=== PATIENT | female | born 1940 | race Caucasian/White ===

== ENCOUNTER 2016-09-14 02:44 | Emergency (ER) | payer MEDICARE, BC ==
[~2016-09-14] VITALS: Ht 154.9 cm; Wt 79.8 kg
[~2016-09-14 02:44] MED LIST: APIX5TAB PO; COMB0.2S; DEXI30CA2 PO; DILT31TA PO; ESTR.3 PO; FEXO60TA PO; FLUT1SPR9; FLUT50SP EACH NARE; IPRAAER IN; METO50CR PO; MONT10TA2 PO; SIMV40TA PO
[2016-09-14 02:53] VITALS: BP 135/77; PULSE 93; RESP 12; TEMP 98; O2SAT 95
[2016-09-14] MEDS ORDERED: ACETAMINOPHEN 325 MG TAB PO ONE (03:15)
[2016-09-14 03:37] LABS: AUTOMATED NEUTROPHIL # 13.7 TH/MM3 (1.8-7.7); BASOPHIL # 0.6 TH/MM3 (0-0.2); BASOPHIL % 2.8 % (0.0-2.0); EOSINOPHIL % 0.2 % (0.0-4.0); HEMATOCRIT 40.9 % (35.0-46.0); LYMPH % 33.9 % (9.0-44.0); LYMPHOCYTE # 7.8 TH/MM3 (1.0-4.8); MEAN CELL VOLUME 88.6 FL (80.0-100.0); MEAN CORPUSCULAR HGB CONC 32.8 % (32.0-36.0); MONO % 3.7 % (0.0-8.0); NEUT % 59.4 % (16.0-70.0); PLATELET COUNT 215 TH/MM3 (150-450); RED BLOOD COUNT 4.61 MIL/MM3 (4.00-5.30); RED CELL DISTRIBUTION WIDTH 15.6 % (11.6-17.2)
[2016-09-14] MEDS ORDERED: FLUT1SPR5 EACH NARE (03:37)
[2016-09-14] MEDS ORDERED: DILT30TA PO (03:37)
[2016-09-14] MEDS ORDERED: APIX5TAB PO (03:37)
[2016-09-14] MEDS ORDERED: MONT10TA2 PO (03:37)
[2016-09-14] MEDS ORDERED: METO50TA11 PO (03:37)
[2016-09-14] MEDS ORDERED: FEXO15TA PO (03:37)
[2016-09-14] MEDS ORDERED: ALBUAER3 INH (03:37)
[2016-09-14] MEDS ORDERED: DEXI30CA2 PO (03:37)
[2016-09-14] MEDS ORDERED: BRIN1SUS2 EACH EYE (03:37)
[2016-09-14] MEDS ORDERED: FLUT1INH INH (03:37)
[2016-09-14 03:40] LABS: HEMO FLAGS AUTO DIFF
[2016-09-14 03:52] LABS: APTT (PATIENT) 22.7 SEC (24.3-30.1); INTERNATIONAL NORMALIZED RATIO 0.9 RATIO; PROTHROMBIN TIME - PATIENT 9.6 SEC (9.8-11.6)
[2016-09-14 03:54] LABS: CHLORIDE 107 MEQ/L (98-107); POTASSIUM 4.4 MEQ/L (3.5-5.1); SODIUM (NA) 142 MEQ/L (136-145)
--- NOTE | 2016-09-14 03:55 | RADHPO ---
EXAM DATE/TIME: 09/14/2016 03:32 [place] COMPARISON: No previous studies available for comparison. INDICATIONS : Left ankle pain, swelling for 2 hours with no known injury MEDICAL HISTORY : None. SURGICAL HISTORY : None. ENCOUNTER: Initial ACUITY: 1 day PAIN SCORE: 10/10 LOCATION: Left entire ankle FINDINGS: No acute fracture of the left ankle. No subluxation or significant degenerative changes. There is an old ossific fragment distal to the tip of the lateral malleolus. Radiographic appearance of the soft tissues within normal limits. CONCLUSION: No acute abnormality seen of the left ankle. Keyur Gómez MD on September 14, 2016 at 3:52 Board Certified Radiologist. This report was verified electronically.
[2016-09-14 03:57] LABS: ANION GAP 9 MEQ/L (5-15); BICARBONATE 26.4 MEQ/L (21.0-32.0); BLOOD UREA NITROGEN 35 MG/DL (7-18)
[2016-09-14 04:00] LABS: ALT (GPT) 47 U/L (10-53); AST (GOT) 20 U/L (15-37); GLOMERULAR FILTRATION RATE 77 ML/MIN (>89)
[2016-09-14 04:02] LABS: TOTAL BILIRUBIN ADULT 0.4 MG/DL (0.2-1.0)
[2016-09-14 04:03] LABS: ALKALINE PHOSPHATASE 102 U/L (45-117)
--- NOTE | 2016-09-14 04:04 | PD ---
HPI Chief Complaint: Pain: Acute or Chronic Time Seen by Provider: 02:57 Travel History International Travel<30 days: No Contact w/Intl Traveler<30days: No Traveled to known affect area: No History of Present Illness HPI Patient is a 76 year old female who comes in complaining of sudden onset of pain and swelling to her left ankle. She says that the pain woke her up from sleep around 1AM. She does not recall any injuries. She has been having a lot of health problems, specifically having issues with her asthma. She has been started on multiple medications. She does have a history of afib and is on Eliquis. She says she is concerned she may have a blood clot. She denies any chest pain. She is short of breath, but says this is her baseline. PFSH Past Medical History Arthritis: Yes (osteoporosis) Asthma: Yes Atrial Fibrillation: Yes (ablation 2014) Heart Rhythm Problems: Yes (afib) Cardiovascular Problems: Yes High Cholesterol: Yes Cerebrovascular Accident: Yes (tia, stroke with aphasia and dysphasia) Coronary Artery Disease: Yes Diverticulitis: Yes (ibs) GERD: Yes Glaucoma: Yes (severe, bilateral trabeculectomies) Headaches: Yes Hypertension: Yes Medical other: Yes (hairline fractures l ankle, bilat wrist) Musculoskeletal: Yes (r foot pain, numbness to l hand, cramping in feet, chronic back/neck pain) Respiratory: Yes Migraines: Yes Thyroid Disease: Yes (parathyroidectomy) Menopausal: Yes Miscarriage: 6 Past Surgical History Eye Surgery: Yes (bilat cataracts) Hysterectomy: Yes Other Surgery: Yes Social History Alcohol Use: No Tobacco Use: No Allergies-Medications (Allergen,Severity, Reaction): Coded Allergies: Codeine (Verified Allergy, Severe, 09/14/16) Morphine (Verified Allergy, Severe, 09/14/16) Reported Meds & Prescriptions Reported Meds & Active Scripts Active Simvastatin 40 Mg Tab 40 Mg PO HS Reported Proair Hfa 8.5 GM Inh (Albuterol Sulfate) 90 Mcg/Act Aer 2 Puff INH Q4-6H PRN 108 mcg/actuation Breo Ellipta Inh (Fluticasone/Vilanterol) 100-25 Mcg/Act Inh 1 Puff INH DAILY Use daily at the same time. Nan Allergy (Fexofenadine HCl) 180 Mg Tab 180 Mg PO DAILY Flonase Nasal Bush (Fluticasone Nasal Bush) 50 Mcg/Act Bush 50 Mcg EACH NARE BID Singulair (Montelukast Sodium) 10 Mg Tab 10 Mg PO HS Eliquis (Apixaban) 5 Mg Tab 5 Mg PO BID Simbrinza Opth Drops (Brinzolamide-Brimonidine Opth Drops) 1-0.2% Susp 2 Drop EACH EYE DAILY Dexilant (Dexlansoprazole) 30 Mg Isael.bp 1 Cap PO AC BREAKFAST Metoprolol Succinate ER 24 HR (Metoprolol Succinate) 50 Mg Tab 50 Mg PO DAILY Diltiazem (Diltiazem HCl) 30 Mg Tab 30 Mg PO BID Review of Systems Except as stated in HPI: all other systems reviewed are Neg General / Constitutional: No: Fever, Chills Eyes: No: Blurred Vision HENT: No: Headaches, Lightheadedness Cardiovascular: No: Chest Pain or Discomfort Respiratory: Positive: Shortness of Breath Gastrointestinal: No: Nausea, Vomiting Musculoskeletal: Positive: Edema, Pain Skin: No Rash, No Change in Pigmentation Neurologic: No: Weakness, Dizziness Physical Exam Narrative GENERAL: Awake and alert, in no acute distress. SKIN: Focused skin assessment warm/dry. HEAD: Atraumatic. Normocephalic. EYES: Pupils equal and round. No scleral icterus. No injection or drainage. ENT: Mucous membranes pink and moist. NECK: Trachea midline. No JVD. CARDIOVASCULAR: Regular rate and rhythm. No murmur appreciated. RESPIRATORY: No accessory muscle use. Clear to auscultation. Breath sounds equal bilaterally. GASTROINTESTINAL: Abdomen soft, non-tender, nondistended. MUSCULOSKELETAL: No obvious deformities. No clubbing. No cyanosis. Mild edema of the left ankle. Tender to palpation to the lateral malleolus. Pedal pulses intact. NEUROLOGICAL: Awake and alert. No obvious cranial nerve deficits. Motor grossly within normal limits. Normal speech. PSYCHIATRIC: Appropriate mood and affect; insight and judgment normal. Data Data Last Documented VS Vital Signs Date Time Temp Pulse Resp B/P Pulse Ox O2 Delivery O2 Flow Rate FiO2 09/14/16 02:53 98.0 93 12 135/77 95 Orders Complete Blood Count With Diff (09/14/16 03:10) Comprehensive Metabolic Panel (09/14/16 03:10) Act Partial Throm Time (Ptt) (09/14/16 03:10) Prothrombin Time / Inr (Pt) (09/14/16 03:10) Ankle, Complete ([id number]) (09/14/16 ) Acetaminophen (Tylenol) (09/14/16 03:15) Us Leg Venous Doppler (09/14/16 ) Labs Laboratory Tests Test 09/14/16 03:25 White Blood Count 23.0 TH/MM3 Red Blood Count 4.61 MIL/MM3 Hemoglobin 13.4 GM/DL Hematocrit 40.9 % Mean Corpuscular Volume 88.6 FL Mean Corpuscular Hemoglobin 29.0 PG Mean Corpuscular Hemoglobin 32.8 % Concent Red Cell Distribution Width 15.6 % Platelet Count 215 TH/MM3 Mean Platelet Volume 7.3 FL Neutrophils (%) (Auto) 59.4 % Lymphocytes (%) (Auto) 33.9 % Monocytes (%) (Auto) 3.7 % Eosinophils (%) (Auto) 0.2 % Basophils (%) (Auto) 2.8 % Neutrophils # (Auto) 13.7 TH/MM3 Lymphocytes # (Auto) 7.8 TH/MM3 Monocytes # (Auto) 0.9 TH/MM3 Eosinophils # (Auto) 0.0 TH/MM3 Basophils # (Auto) 0.6 TH/MM3 CBC Comment AUTO DIFF Differential Total Cells 100 Counted Neutrophils % (Manual) 61 % Band Neutrophils % 3 % Lymphocytes % 34 % Monocytes % 2 % Neutrophils # (Manual) 14.7 TH/MM3 Differential Comment FINAL DIFF MANUAL Platelet Estimate NORMAL Platelet Morphology Comment NORMAL Red Cell Morphology Comment NORMAL Prothrombin Time 9.6 SEC Prothromb Time International 0.9 RATIO Ratio Activated Partial 22.7 SEC Thromboplast Time Sodium Level 142 MEQ/L Potassium Level 4.4 MEQ/L Chloride Level 107 MEQ/L Carbon Dioxide Level 26.4 MEQ/L Anion Gap 9 MEQ/L Blood Urea Nitrogen 35 MG/DL Creatinine 0.73 MG/DL Estimat Glomerular Filtration 77 ML/MIN Rate Random Glucose 79 MG/DL Calcium Level 8.5 MG/DL Total Bilirubin 0.4 MG/DL Aspartate Amino Transf 20 U/L (AST/SGOT) Alanine Aminotransferase 47 U/L (ALT/SGPT) Alkaline Phosphatase 102 U/L Total Protein 6.1 GM/DL Albumin 3.0 GM/DL [facility] Medical Decision Making Medical Screen Exam Complete: Yes Emergency Medical Condition: Yes Medical Record Reviewed: Yes Differential Diagnosis fracture vs sprain vs arthritis vs DVT Narrative Course Patient is a 76-year-old female comes in complaining of left ankle pain. She said it started hurting suddenly and woke her up from sleep. Exam shows mild swelling to the ankle as well as tenderness to the lateral malleolus. IV established, labs sent. Labs showed elevated white blood cell count of 23. Patient is on steroids, which would account for this number. The ankle performed shows no acute abnormalities. Patient offered Doppler ultrasound to rule out blood clot. I expect her that this is only way to rule out a blood clot at this point, however she does not wish to stay for the test. She says she has to be a new [place] early this morning and has home health coming to her house. I explained that a blood clot could travel from her legs or lungs and cause serious illness or . She does not want to stay for the test. She'll follow-up with her doctors. She will return to the ED as needed if any symptoms worsen. Diagnosis Primary Impression: Ankle pain, left Qualified Code: M25.572 - Acute left ankle pain Patient Instructions: Ankle Sprain (ED), General Instructions Additional Instructions: Take Tylenol or ibuprofen as needed for pain. Elevate her legs. Follow-up with her doctors. Return to the ED as needed for any worsening symptoms. Disposition: 01 DISCHARGE HOME Condition: Stable Dary Dimas MD Sep 14, 2016 04:04
[2016-09-14 04:11] LABS: BANDS 3 % (0-6); NEUTROPHIL # MANUAL DIFF 14.7 TH/MM3 (1.8-7.7); PLATELET ESTIMATE SMEAR NORMAL (NORMAL); PLATELET MORPHOLOGY NORMAL (NORMAL); POLYS (SEG NEUTROPHILS) 61 % (16-70); SCAN/DIFF FINAL DIFF MANUAL; WBC DIFF SAMPLE 100
[2016-09-14 04:31] VITALS: BP 141/73
== END 2016-09-14 04:35 | disposition home or self-care (01) ==
LOC: PHED 02:44
DX: M25.572 Pain in left ankle and joints of left foot (principal); J45.909 Unspecified asthma, uncomplicated; I48.91 Unspecified atrial fibrillation; M81.0 Age-related osteoporosis without current pathological fracture; E78.00 Pure hypercholesterolemia, unspecified; Z86.73 Personal history of transient ischemic attack (TIA), and cerebral infarction without residual deficits; K58.9 Irritable bowel syndrome, unspecified; K21.9 Gastro-esophageal reflux disease without esophagitis; H40.9 Unspecified glaucoma; I10 Essential (primary) hypertension
CPT/HCPCS: 73610; 80053; 85007; 85027; 85610; 85730; 99284